=== PATIENT | female | born 1935 | race Caucasian/White ===

== ENCOUNTER 2017-03-20 20:11 | Emergency (ER) | payer MEDICARE ==
[~2017-03-20] VITALS: Ht 172.7 cm; Wt 72.0 kg
[2017-03-20 20:30] VITALS: BP 124/58; PULSE 69; RESP 16; TEMP 98.3; O2SAT 99
[2017-03-20] MEDS ORDERED: ALPR.25 PO (20:40)
[2017-03-20] MEDS ORDERED: ASPI81CH CHEW (20:40)
[2017-03-20] MEDS ORDERED: SYNT25TA PO (20:40)
[2017-03-20] MEDS ORDERED: OMEP10CA PO (20:40)
[2017-03-20] MEDS ORDERED: TETANUS/DIPHTHERIA TOXOID ADULT 0.5 ML VIAL IM ONE (21:00)
[2017-03-20] MEDS ORDERED: LIDOCAINE 1%/EPINEPHrine 1:100,000 SOLN 20 ML VIAL INFIL ONE (21:00)
[2017-03-20] MEDS ORDERED: LIDOCAINE HCL 1% 50 ML VIAL INFIL ONE (21:00)
[2017-03-20] MEDS ORDERED: CLINDAMYCIN 150 MG CAP PO ONE (21:00)
--- NOTE | 2017-03-20 21:02 | PD ---
Physical Exam Date Seen by Provider: Mar 20, 2017 Time Seen by Provider: 21:00 Narrative I was asked by Dr. Gurerier to repair laceration to patient's scalp. Please see his documentation for full history and physical. Data Data Last Documented VS Vital Signs Date Time Temp Pulse Resp B/P (MAP) Pulse Ox O2 Delivery O2 Flow Rate FiO2 03/20/17 20:30 98.3 69 16 124/58 (80) 99 Orders Orders Lidocaine 1% Inj (50 Ml) (Xylocaine 1% I (03/20/17 21:00) Lidocai-Epi 1%-1:100,000 Inj (Xylocaine- (03/20/17 21:00) Tetanus/Diphtheria Tox Adult (Tetanus/Di (03/20/17 21:00) Ct Brain W/O Iv Contrast(Rout) (03/20/17 20:49) Clindamycin (Cleocin) (03/20/17 21:00) MDM Supervised Visit with SEAN: No Narrative Course LACERATION LOCATION: Scalp LENGTH: 26 cm NUMBER OF STITCHES/JESSIKA: 31 jessika, 2 vicryl 4-0 figure 8 sutures REPAIR: The area of the laceration was prepped with Betadine and sterilely draped. The laceration was infiltrated with 1% lidocaine with epinephrine. The wound was copiously irrigated and explored without evidence of foreign body, tendon injury or neurovascular injury. The wound was closed using jessika and 4- 0 Vicryl. This was a 2 layer repair. A sterile dressing was applied. The patient was advised to keep the dressing clean and dry. Patient tolerated the procedure well. Yana Collins Mar 20, 2017 21:02
--- NOTE | 2017-03-20 21:02 | PD ---
HPI Chief Complaint: Head Injury Time Seen by Provider: 20:26 Travel History International Travel<30 days: No Contact w/Intl Traveler<30days: No Traveled to known affect area: No History of Present Illness HPI 81-year-old female complains of scalp laceration. Patient has been taking oral prep for colonoscopy tomorrow. Patient states that she was sitting on the toilet and try to get up and passed out and hit her head. Patient complained of burning pain on the top the head. Patient denies any headache. Patient denies any visual change. Patient denies any neck pain. Patient denies any chest pain or shortness of breath. Patient denies abdominal pain. Patient denies any focal weakness or numbness of the extremity. Patient states that she had mild aching pain to the bilateral thigh area earlier however not now. Patient denies any focal weakness or numbness of extremity. Patient on aspirin 81 mg by mouth daily. PFSH Past Medical History Anxiety: Yes Cancer: Yes (breast) High Cholesterol: Yes Hypertension: Yes Immunizations Current: Yes Tetanus Vaccination: Unknown Influenza Vaccination: No Social History Alcohol Use: No Tobacco Use: No Substance Use: No Allergies-Medications (Allergen,Severity, Reaction): Coded Allergies: Sulfa (Sulfonamide Antibiotics) (Verified Allergy, Severe, Anaphylaxis, 03/20/17) acetaminophen (Verified Allergy, Severe, Confusion, 03/20/17) ciprofloxacin (Verified Allergy, Severe, Anaphylaxis, 03/20/17) doxycycline (Verified Allergy, Severe, Anaphylaxis, 03/20/17) oxycodone (Verified Allergy, Severe, Anaphylaxis, 03/20/17) penicillin G (Verified Allergy, Severe, Anaphylaxis, 03/20/17) potassium chloride (Verified Allergy, Severe, Dizziness, 03/20/17) sulfamethoxazole (Verified Allergy, Severe, Cardiac Arrest, 03/20/17) trimethoprim (Verified Allergy, Severe, Cardiac Arrest, 03/20/17) sertraline (Verified Allergy, Unknown, Cardiac Arrest, 03/20/17) Reported Meds & Prescriptions Reported Meds & Active Scripts Active Clindamycin (Clindamycin HCl) 150 Mg Cap 150 Mg PO Q6H Reported Synthroid (Levothyroxine Sodium) 25 Mcg Tab 25 Mcg PO DAILY Omeprazole 10 Mg Cap 10 Mg PO DAILY Xanax (Alprazolam) 0.25 Mg Tab 0.25 Mg PO Q8H PRN Aspirin 81 Mg Chew 81 Mg CHEW DAILY Review of Systems General / Constitutional: No: Fever Eyes: No: Visual changes HENT: No: Headaches Cardiovascular: No: Chest Pain or Discomfort Respiratory: No: Shortness of Breath Gastrointestinal: No: Abdominal Pain Genitourinary: No: Dysuria Musculoskeletal: No: Pain Skin: No Rash Neurologic: No: Weakness Psychiatric: No: Depression Endocrine: No: Polydipsia Hematologic/Lymphatic: No: Easy Bruising Physical Exam Narrative GENERAL: Well-nourished, well-developed patient. SKIN: Focused skin assessment warm/dry. HEAD: Patient has a 26 cm scalp laceration extending on the top the head to the left presybeterian area. Patient has an arterial bleeder noted. EYES: No scleral icterus. No injection or drainage. Pupils 3 mm equal reactive. NECK: Supple, trachea midline. No JVD or lymphadenopathy. No neck tenderness on palpation. CARDIOVASCULAR: Regular rate and rhythm without murmurs, gallops, or rubs. RESPIRATORY: Breath sounds equal bilaterally. No accessory muscle use. GASTROINTESTINAL: Abdomen soft, non-tender, nondistended. MUSCULOSKELETAL: No cyanosis, or edema. BACK: Nontender without obvious deformity. No CVA tenderness. Neurologic exam: Patient is awake and alert oriented 3. No obvious focal neurological deficit. Data Data Last Documented VS Vital Signs Date Time Temp Pulse Resp B/P (MAP) Pulse Ox O2 Delivery O2 Flow Rate FiO2 03/20/17 20:30 98.3 69 16 124/58 (80) 99 Orders Orders Lidocaine 1% Inj (50 Ml) (Xylocaine 1% I (03/20/17 21:00) Lidocai-Epi 1%-1:100,000 Inj (Xylocaine- (03/20/17 21:00) Tetanus/Diphtheria Tox Adult (Tetanus/Di (03/20/17 21:00) Ct Brain W/O Iv Contrast(Rout) (03/20/17 20:49) Clindamycin (Cleocin) (03/20/17 21:00) MDM Medical Decision Making Medical Screen Exam Complete: Yes Emergency Medical Condition: Yes Interpretation(s) Last Impressions Head CT 03/20/172048 Signed Impressions: Service Date/Time: Monday, March 20, 2017 22:23 - CONCLUSION: 1. No acute intracranial abnormality. Left scalp skin jessika present with air in subcutaneous tissues. Alexander Gonzalez MD Differential Diagnosis Differential diagnosis including scalp laceration, skull fracture, intracranial hemorrhage. Narrative Course 81-year-old female with scalp laceration. Patient had a syncopal episode and fell. Patient on bowel prep today for colonoscopy tomorrow. TD booster given. Clindamycin 150 MG by mouth given. Diagnosis Primary Impression: Scalp laceration Qualified Codes: S01.01XA - Laceration without foreign body of scalp, initial encounter Additional Impressions: Closed head injury Qualified Codes: S09.90XA - Unspecified injury of head, initial encounter Syncope Qualified Codes: R55 - Syncope and collapse Patient Instructions: General Instructions Additional Instructions: Wound care daily. Head trauma instructions given. Return in 10 days for staple removal. Med/Other Pt SpecificInfo: Prescription(s) given Scripts Clindamycin (Clindamycin) 150 Mg Cap 150 MG PO Q6H for Infection, #28 CAP 0 Refills Prov: Greg Guerrier MD 03/20/17 Disposition: 01 DISCHARGE HOME Condition: Stable Greg Guerrier MD Mar 20, 2017 21:02
--- NOTE | 2017-03-20 22:43 | RADRPT ---
EXAM DATE/TIME: 03/20/2017 22:23 [facility] COMPARISON: No previous studies available for comparison. INDICATIONS : Syncopal episode. Laceration to left side of head. RADIATION DOSE: 56.35 CTDIvol (mGy) MEDICAL HISTORY : Hypertension. Carcinoma, breast. SURGICAL HISTORY : None. ENCOUNTER: Initial ACUITY: 1 day PAIN SCALE: 6/10 LOCATION: cranial TECHNIQUE: Multiple contiguous axial images were obtained of the head. Using automated exposure control and adj ustment of the mA and/or kV according to patient size, radiation dose was kept as low as reasonably a chievable to obtain optimal diagnostic quality images. DICOM format image data is available electro nically for review and comparison. FINDINGS: CEREBRUM: The ventricles are normal for age. No evidence of midline shift, mass lesion, hemorrhage or acute in farction. No extra-axial fluid collections are seen. POSTERIOR FOSSA: The cerebellum and brainstem are intact. The 4th ventricle is midline. The cerebellopontine angle i s unremarkable. EXTRACRANIAL: The visualized portion of the orbits is intact. SKULL: The calvaria is intact. No evidence of skull fracture. CONCLUSION: 1. No acute intracranial abnormality. Left scalp skin jessika present with air in subcutaneous tissue clair Gonzalez MD on March 20, 2017 at 22:39 Board Certified Radiologist. This report was verified electronically.
[2017-03-20] MEDS ORDERED: CLIN1CAP5 PO (23:08)
== END 2017-03-20 23:36 | disposition home or self-care (01) ==
LOC: NEPC 20:11
DX: S01.01XA Laceration without foreign body of scalp, initial encounter (principal); S09.90XA Unspecified injury of head, initial encounter; R55 Syncope and collapse; F41.9 Anxiety disorder, unspecified; E78.00 Pure hypercholesterolemia, unspecified; W18.11XA Fall from or off toilet without subsequent striking against object, initial encounter; Z79.82 Long term (current) use of aspirin; Z79.899 Other long term (current) drug therapy; Z23 Encounter for immunization
CPT/HCPCS: 12036; 70450; 90471; 90714